=== PATIENT | male | born 1995 | race Two or more races ===

== ENCOUNTER 2017-01-20 18:31 | Emergency (ER) | payer MEDICAID, OTHER ==
[~2017-01-20] VITALS: Ht 182.9 cm; Wt 86.2 kg
[2017-01-20 18:40] VITALS: BP 128/62
[2017-01-20] MEDS ORDERED: LIDOCAINE 1% HCL (LOCAL ANESTH.) INJ 20ML MDV ONE (21:33)
[2017-01-20] MEDS ORDERED: BACITRACIN TOP OINT 1 UD PKG TOP ONE (22:00)
[2017-01-20] MEDS ORDERED: LIDOCAINE 1% HCL (LOCAL ANESTH.) INJ 20ML MDV IJ ONE (22:00)
== END 2017-01-20 22:18 | disposition home or self-care (01) ==
LOC: ER 18:32
DX: S61.411A Laceration without foreign body of right hand, initial encounter (principal); W25.XXXA Contact with sharp glass, initial encounter; Y93.89 Activity, other specified; Y99.8 Other external cause status; Y92.89 Other specified places as the place of occurrence of the external cause
CPT/HCPCS: 12002; 99283; J2001

== ENCOUNTER 2017-01-22 17:35 | Emergency (ER) | payer MEDICAID ==
[~2017-01-22] VITALS: Ht 182.9 cm; Wt 86.2 kg
[2017-01-22 18:14] VITALS: BP 125/92
[2017-01-22] MEDS ORDERED: TETANUS-DIPTH-ACEL PERTUSSIS 0.5ML SYRG IM ONE (19:00)
== END 2017-01-22 20:06 | disposition home or self-care (01) ==
LOC: ER 17:51
DX: L03.113 Cellulitis of right upper limb (principal); Z48.01 Encounter for change or removal of surgical wound dressing
CPT/HCPCS: 73130; 90715

== ENCOUNTER 2017-01-31 15:31 | Emergency (ER) | payer MEDICAID ==
[~2017-01-31] VITALS: Ht 182.9 cm; Wt 86.2 kg
[2017-01-31 15:58] VITALS: BP 144/94
== END 2017-01-31 16:31 | disposition home or self-care (01) ==
LOC: ER 15:35
DX: S61.411D Laceration without foreign body of right hand, subsequent encounter (principal); Z48.02 Encounter for removal of sutures